=== PATIENT | female | born 1945 | race Two or more races ===

== ENCOUNTER 2020-03-15 07:49 | Emergency (ER) | payer OTHER ==
[~2020-03-15] VITALS: Ht 160 cm; Wt 73.9 kg
[~2020-03-15 07:49] MED LIST: NEURONTIN800 MG
== END 2020-03-15 12:08 | disposition home or self-care (01) ==
LOC: ER 07:49
DX: S62.623A Displaced fracture of middle phalanx of left middle finger, initial encounter for closed fracture (principal); S52.531A Colles' fracture of right radius, initial encounter for closed fracture; S01.121A Laceration with foreign body of right eyelid and periocular area, initial encounter; W01.198A Fall on same level from slipping, tripping and stumbling with subsequent striking against other object, initial encounter; Y93.89 Activity, other specified; Y92.012 Bathroom of single-family (private) house as the place of occurrence of the external cause; Y99.8 Other external cause status

== ENCOUNTER 2020-04-03 10:06 | Outpatient (CLI) | payer OTHER | END 2020-04-03 10:31 | disposition home or self-care (01) | LOC: RAD 10:06 | DX: S66.323A Laceration of extensor muscle, fascia and tendon of left middle finger at wrist and hand level, initial encounter (principal); S52.501A Unspecified fracture of the lower end of right radius, initial encounter for closed fracture ==

== ENCOUNTER 2020-04-17 09:19 | Outpatient (CLI) | payer OTHER | END 2020-04-17 09:26 | disposition home or self-care (01) | LOC: RAD 09:19 | PROVIDERS: ATTEND Orthopaedic Surgery | DX: S52.571D Other intraarticular fracture of lower end of right radius, subsequent encounter for closed fracture with routine healing (principal); S62.623D Displaced fracture of middle phalanx of left middle finger, subsequent encounter for fracture with routine healing ==

== ENCOUNTER 2020-05-24 08:36 | Outpatient (CLI) | payer OTHER | END 2020-05-24 08:43 | disposition home or self-care (01) | LOC: LAB 08:36 → RAD 08:36 → LAB 08:43 | PROVIDERS: ATTEND Orthopaedic Surgery | DX: S52.572D Other intraarticular fracture of lower end of left radius, subsequent encounter for closed fracture with routine healing (principal); M13.842 Other specified arthritis, left hand; M85.841 Other specified disorders of bone density and structure, right hand ==

== ENCOUNTER 2020-07-14 10:56 | Outpatient (CLI) | payer OTHER | END 2020-07-14 10:59 | disposition home or self-care (01) | LOC: NUCLEAR 10:56 | PROVIDERS: ATTEND General Practice | DX: M81.0 Age-related osteoporosis without current pathological fracture (principal); Z13.820 Encounter for screening for osteoporosis ==

== ENCOUNTER 2020-08-21 09:04 | Outpatient (CLI) | payer OTHER | END 2020-08-21 09:07 | disposition home or self-care (01) | LOC: RAD 09:04 | PROVIDERS: ATTEND Orthopaedic Surgery | DX: S52.571D Other intraarticular fracture of lower end of right radius, subsequent encounter for closed fracture with routine healing (principal) ==

== ENCOUNTER 2020-11-13 07:27 | Outpatient (CLI) | payer OTHER | END 2020-11-13 07:34 | disposition home or self-care (01) | LOC: MAMO-SONO 07:27 | DX: N63.21 Unspecified lump in the left breast, upper outer quadrant (principal) ==

== ENCOUNTER 2020-12-26 09:16 | Emergency (ER) | payer OTHER ==
[~2020-12-26] VITALS: Ht 157.5 cm; Wt 74.4 kg
[2020-12-26] MEDS ORDERED: RELAFEN DS1000 MG PO (09:40)
[2020-12-26] MEDS ORDERED: SKELAXIN800 MG PO (11:55)
[2020-12-26] MEDS ORDERED: DICLOFENAC POTA50 MG PO (11:55)
[2020-12-26] MEDS ORDERED: ULTRAM50 MG PO (11:55)
== END 2020-12-26 11:58 | disposition home or self-care (01) ==
LOC: ER 09:16
DX: M25.562 Pain in left knee (principal)

== ENCOUNTER 2021-01-03 08:08 | Outpatient (CLI) | payer OTHER ==
[~2021-01-03 08:08] MED LIST changes: +DICLOFENAC POTA50 MG PO; +RELAFEN DS1000 MG PO; +SKELAXIN800 MG PO; +ULTRAM50 MG PO
== END 2021-01-03 08:11 | disposition home or self-care (01) ==
LOC: RAD 08:08
PROVIDERS: ATTEND General Practice
DX: M25.562 Pain in left knee (principal)

== ENCOUNTER → 2021-01-09 08:18 | Outpatient (CLI) | payer OTHER | END | disposition home or self-care (01) | LOC: RAD 08:18 | PROVIDERS: ATTEND General Practice | DX: M25.562 Pain in left knee (principal); M25.561 Pain in right knee ==

== ENCOUNTER 2021-04-08 13:32 | Outpatient (CLI) | payer OTHER | END 2021-04-08 13:38 | disposition home or self-care (01) | LOC: SONOGRAMA 13:32 → MAMO-SONO 14:15 | PROVIDERS: ATTEND General Practice | DX: M25.562 Pain in left knee (principal); M71.22 Synovial cyst of popliteal space [Baker], left knee ==

== ENCOUNTER 2021-07-27 10:04 | Outpatient (CLI) | payer OTHER | END 2021-07-27 10:09 | disposition home or self-care (01) | LOC: MRI 10:04 | PROVIDERS: ATTEND General Practice | DX: S83.32XA Tear of articular cartilage of left knee, current, initial encounter (principal) | CPT/HCPCS: 73723 ==

== ENCOUNTER 2021-08-31 07:21 | Outpatient (CLI) | payer OTHER | END 2021-08-31 07:25 | disposition home or self-care (01) | LOC: RAD 07:21 | PROVIDERS: ATTEND General Practice | DX: M54.2 Cervicalgia (principal) ==

== ENCOUNTER 2021-12-31 08:40 | Outpatient (CLI) | payer OTHER | END 2021-12-31 08:55 | disposition home or self-care (01) | LOC: PPH VACUNA 08:40 | PROVIDERS: ATTEND Emergency Medicine Pediatric Emergency Medicine | DX: Z23 Encounter for immunization (principal) ==

== ENCOUNTER 2022-04-08 07:44 | Outpatient (CLI) | payer OTHER | END 2022-04-08 07:50 | disposition home or self-care (01) | LOC: RAD 07:44 | PROVIDERS: ATTEND General Practice | DX: B35.4 Tinea corporis (principal) ==

== ENCOUNTER 2023-01-27 07:21 | Outpatient (CLI) | payer OTHER | END 2023-01-27 07:25 | disposition home or self-care (01) | LOC: RAD 07:21 | PROVIDERS: ATTEND General Practice | DX: M19.079 Primary osteoarthritis, unspecified ankle and foot (principal) ==

== ENCOUNTER 2023-02-07 08:26 | Outpatient (CLI) | payer OTHER | END 2023-02-07 08:28 | disposition home or self-care (01) | LOC: NUCLEAR 08:26 | PROVIDERS: ATTEND Podiatrist | DX: I73.9 Peripheral vascular disease, unspecified (principal) ==

== ENCOUNTER 2023-02-09 08:01 | Outpatient (CLI) | payer OTHER | END 2023-02-09 08:03 | disposition home or self-care (01) | LOC: NUCLEAR 08:01 | PROVIDERS: ATTEND General Practice | DX: I73.9 Peripheral vascular disease, unspecified (principal) ==